=== PATIENT | female | born 1955 | race Caucasian/White ===

== ENCOUNTER 2018-03-04 10:16 | Outpatient (CLI) | payer MEDICAID, SELFPAY ==
[2018-03-04 13:09] LABS: Glucose 90 mg/dL (70-100); Potassium 4.2 mmol/L (3.5-5.1)
== END 2018-03-04 10:36 ==
PROVIDERS: PCP Family Medicine; Visit Provider Family Medicine
DX: E74.39 Other disorders of intestinal carbohydrate absorption (principal)
CPT/HCPCS: 36415; 82947; 84132

== ENCOUNTER 2019-03-13 07:00 | Outpatient (CLI) | payer OTHER, SELFPAY ==
[2019-03-13 13:31] LABS: Calculated LDL 138 mg/dL; Cholesterol 213 mg/dL (50-200); HDL Cholesterol 51 mg/dL (40-60); Triglyceride 124 mg/dL (30-150)
== END 2019-03-13 07:20 ==
PROVIDERS: PCP Family Medicine; Visit Provider Family Medicine
DX: Z00.00 Encounter for general adult medical examination without abnormal findings (principal); Z13.220 Encounter for screening for lipoid disorders
CPT/HCPCS: 36415; 80061; 84132

== ENCOUNTER → 2021-08-11 01:51 | Outpatient (CLI) | payer MEDICARE, SELFPAY ==
--- NOTE | 2021-08-11 12:19 | DI.RAD_ITS ---
Exam(s) XR CHEST 2V PA LATERAL EXAM: XR CHEST 2V PA LATERAL CLINICAL HISTORY: EXERTIONAL SOB R06.09, 30+ PACK PER YEAR TOBACCO USE. TECHNIQUE: 2D digital imaging was performed. COMPARISON: CR CHEST 2 VIEWS PA,LAT from 05/26/2017 FINDINGS: Heart size is normal. The mediastinum is not widened. Lungs are clear. No infiltrates nor pleural effusions. IMPRESSION: No acute pulmonary findings. DATA REPOSITORY: RADIATION DOSE DELIVERED:
== END ==
PROVIDERS: Visit Provider Nurse Practitioner Family
DX: R06.09 Other forms of dyspnea (principal)
CPT/HCPCS: 71046

== ENCOUNTER 2021-08-16 16:36 | Outpatient (REF) | payer MEDICARE, SELFPAY ==
[2021-08-16 15:13] LABS: HCT 42.7 % (36.0-46.0); HGB 13.7 g/dL (11.2-15.7); MCH 30.9 pg (27.0-33.0); MCHC 32.1 % (32.0-36.0); MCV 96.4 fL (80-95); MPV 10.5 fL (8.0-11.0); Platelet Count 229 10^3/uL (130-400); RBC 4.43 10^6/uL (3.93-5.22); RDW 12.2 % (11.7-14.6); WBC 4.05 10^3/uL (4.4-10.8)
[2021-08-16 17:14] LABS: Anion Gap 6.8 mmol/L (3-11); BUN 11 mg/dL (7-18); CO2 29.2 mmol/L (21.0-32.0); CREATININE 0.7 mg/dL (0.55-1.02); Calcium 9.1 mg/dL (8.5-10.1); Calculated LDL 142 mg/dL (<100); Chloride 106 mmol/L (98-107); Cholesterol 218 mg/dL (<200); Glucose 83 mg/dL (74-106); HDL Cholesterol 57 mg/dL (40-60); Potassium 4.2 mmol/L (3.5-5.1); Sodium 142 mmol/L (136-145); Triglyceride 99 mg/dL (<150)
== END 2021-08-16 16:37 | disposition home or self-care (01) ==
LOC: NCHCN 16:36
PROVIDERS: Visit Provider Nurse Practitioner Family
DX: R06.09 Other forms of dyspnea (principal); E87.6 Hypokalemia
CPT/HCPCS: 80048; 80061; 85027

== ENCOUNTER 2022-01-18 04:12 | Outpatient (CLI) | payer MEDICARE, SELFPAY ==
[2022-01-18] MEDS: Inhaler, Assist Device 1 EACH MC (16:55)
[2022-01-18] MEDS: Albuterol HFA 18 GM 200 PUFF INH IH (16:55)
--- NOTE | 2022-01-19 15:30 | W.PFT ---
Date of service: 01/18/22 Time of Service: 15:03 Pulmonary Function Test Result Requesting Provider Donna Holloway Indications: Dyspnea on Exertion Interpretation Spirometry: There is no airflow limitation. There is no significant bronchodilator response. Lung Volumes: Normal lung volumes. Diffusion Capacity: Normal diffusion. Airway Pressure: Normal airways resistance Impression Normal pulmonary function testing Clinical Correlation therefore is recommended.
== END 2022-01-18 04:13 | disposition home or self-care (01) ==
LOC: RT 04:12
PROVIDERS: Visit Provider Nurse Practitioner Family
DX: R06.09 Other forms of dyspnea (principal); Z87.891 Personal history of nicotine dependence
CPT/HCPCS: 94060; 94726; 94729

== ENCOUNTER 2022-04-24 09:22 | Emergency (ER) | payer MEDICARE, SELFPAY ==
[2022-04-24 09:36] VITALS: BP 136/72; PULSE 69; RESP 18; TEMP 36.8; O2SAT 98
--- NOTE | 2022-04-24 09:45 | DI.CT_ITS ---
Exam(s) CT RENAL COLIC WO EXAM: CT RENAL COLIC WO CLINICAL HISTORY: R flank pain. TECHNIQUE: Imaging Protocol: Axial computed tomography images with coronal and sagittal reformatted images were created and reviewed. COMPARISON: CR CHEST 2 VIEWS PA,LAT from 05/26/2017 FINDINGS: ABDOMEN: Lung Bases: Normal where visualized. Liver: Normal density. No measurable mass. Gallbladder and biliary tract: Status post cholecystectomy. No biliary ductal dilatation. Pancreas: Normal density, no abnormal calcifications or inflammatory process. Spleen: Normal. Kidneys: Normal size, contour and axis.There is a 7 mm stone at the right proximal ureter causing mod erate hydronephrosis. No masses seen. Adrenal glands: No mass is seen. Lymph nodes: Within normal limits. Abdominal Aorta: Abdominal portion non-dilated. Mild atherosclerosis. PELVIS: Bladder:Symmetric distention, no gross wall thickening. Bowel: No obstruction or bowel wall thickening. Appendix is unremarkable. Peritoneal cavity: No ascites, collection or mesenteric inflammatory response. No free air. Reproductive organs: Unremarkable as visualized. Bones: Within normal limits. Soft Tissues: Within normal limits. IMPRESSION: 1. 7 mm proximal right ureteral stone causing moderate hydronephrosis. 2. Findings were discussed with the emergency department at 11:10 a.m. on 04/24/2022. RADIATION DOSE DELIVERED: Total DLP DATA REPOSITORY: All CT scans at this facility are submitted to the National Radiology Data Registry (NRDR) Dose Index Registry (DIR) with the [employer] (ACR). RADIATION OPTIMIZATION: All CT scans at this facility use at least one of these dose optimization te chniques: automated exposure control; mA and/or kV adjustment per patient size (includes targeted exa ms where dose is matched to clinical indication); or iterative reconstruction.
[2022-04-24 09:47] LABS: Bilirubin Negative (Negative); Blood Large (Negative); Clarity Clear (Clear); Glucose Negative (Negative); Ketones Negative (Negative); Leukocyte Esterase Negative (Negative); Nitrite Negative (Negative); Specific Gravity >= 1.030 (1.005-1.025); Urobilinogen 0.2 EU/dL (Up TO 0.2)
--- NOTE | 2022-04-24 09:54 | W.ED.GENAD ---
Discharge Plan Disposition Patient Disposition: Home Condition: Improving Discharge Details Clinical Impression: Calculus of proximal right ureter Primary Care Provider: MADHU ANDERS ED Provider: Tim Wade Home Meds and New Rx's Prescriptions: New tamsulosin [Flomax] 0.4 mg capsule 0.4 mg PO DAILY 5 Days Qty: 5 0RF oxycodone 5 mg capsule 5 mg PO BID PRN (Reason: pain) Qty: 7 0RF Continued scopolamine base [Transderm-Scop] 1 mg over 3 days patch 3 day 1 patch Transdermal as directed PRN (Reason: motion sickness) Rx Instructions: apply one patch behind ear 4 hr before trip and q 3 days during trip, for flying. fexofenadine 180 mg tablet 180 mg PO DAILY cholecalciferol (vitamin D3) 25 mcg (1,000 unit) capsule 1,000 unit PO DAILY acetaminophen 325 MG tablet 325 mg PO PRN Qty: 2 ibuprofen 200 MG capsule 200 mg PO PRN Qty: 2 vitamin B complex [B-Complex] 1 EACH tablet 1 ea PO DAILY aspirin 325 MG tablet 650 mg PO BID-TID PRN fluticasone propionate 16 GM spray,suspension 2 spray NS DAILY Label Comments: 06/05/17 on hold. si potassium gluconate 595 mg (99 mg) tablet 99 mg PO DAILY Qty: 120 albuterol sulfate [ProAir HFA] 90 mcg/actuation HFA aerosol inhaler See Rx Instructions inhalation Q6H PRN Rx Instructions: 1-2 puffs inhaled every 6 hours PRN; calcium carbonate 500 mg capsule 500 mg PO DIRECTED Discharge Instructions Instructions: Kidney Stones (ED), How to Strain Your Urine (ED) Additional Instructions: I discussed your case with Dr. Reyna. His office will call to arrange follow-up for you likely to include an operative procedure. The office number is [phone]. Take the Flomax once daily until you see Dr. Reyna for follow-up. This may cause some mild lightheadedness when rising quickly to a standing position. Tylenol and/or ibuprofen as needed for discomfort. May use the provided oxycodone if needed for severe or breakthrough pain. Return to the ER for any acute concern. Medical Decision Making 66-year-old female presents from home with complaint of hours of right-sided flank pain. She states that the colicky pain that reminds her of when she had gallstones. She has had a cholecystectomy. She did not note a fever. Vomited after taking Tylenol. She has otherwise recently been well. Vital signs are reassuring during. Exam reveals right flank tenderness to percussion. Differential diagnosis includes ureteral colic, UTI, pyelonephritis. Patient had IV access established, screening labs and urinalysis obtained, given fluids, antiemetic and analgesic. CT images reveal 7 mm right proximal stone with moderate hydronephrosis. Patient with improved analgesia. Case discussed with Dr. Reyna who will arrange short-term follow-up for the patient. She is stable and appropriate for trial of outpatient management although Sign Out No HPI General Mode of arrival: ambulatory. Date/Time Provider Initiated Documentation: 04/24/22 09:25. Limitations to Documentation: no limitations. Information obtained by: patient. History of Present Illness 66 year old F presents to the emergency department with the chief complaint of Right flank pain 4 hours time, described as moderate, Quality is described as dull, and is localized to the back and right. Patient abdomen. Patient started experiencing this hour(s) and it has been intermittent. No relieving factors improve symptom(s), Patient notes nausea/vomiting; denies fever/chills. Patient did receive the following treatments prior to arrival, none Related Data Home Medications Medication Instructions Recorded Confirmed acetaminophen 325 mg tablet 325 mg PO PRN ##2 10/28/12 03/30/20 ibuprofen 200 mg capsule 200 mg PO PRN ##2 10/28/12 03/30/20 vitamin B complex (B-Complex 1 ea PO DAILY 12/27/15 03/30/20 tablet) aspirin 325 mg tablet 650 mg PO BID-TID PRN 06/05/17 03/30/20 fluticasone propionate 50 2 spray NS DAILY 06/05/17 03/30/20 mcg/actuation nasal spray,suspension fexofenadine 180 mg tablet 180 mg PO DAILY 03/13/19 03/30/20 cholecalciferol (vitamin D3) 25 1,000 unit PO DAILY 08/19/19 03/30/20 mcg (1,000 unit) capsule potassium gluconate 595 mg (99 mg) 99 mg PO DAILY #120 tab-caps 03/30/20 03/30/20 tablet scopolamine base 1 mg over 3 days 1 patch transdermal as directed 10/12/20 transdermal patch (Transderm-Scop) PRN motion sickness albuterol sulfate 90 mcg/actuation See Rx Instructions inhalation Q6H 04/16/22 aerosol inhaler (ProAir HFA) PRN calcium carbonate 500 mg capsule 500 mg PO DIRECTED 04/16/22 oxycodone 5 mg capsule 5 mg PO BID PRN pain #7 caps 04/24/22 tamsulosin 0.4 mg capsule (Flomax) 0.4 mg PO DAILY 5 days #5 caps 04/24/22 Previous Rx's Medication Instructions Recorded oxycodone 5 mg capsule 5 mg PO BID PRN pain #7 caps 04/24/22 tamsulosin 0.4 mg capsule (Flomax) 0.4 mg PO DAILY 5 days #5 caps 04/24/22 Allergies Allergy/AdvReac Type Severity Reaction Status Date / Time No Known Drug Allergies Allergy Verified 10/12/20 10:45 Environmental Allergies Allergy Intermediate Runny Uncoded 10/12/20 10:45 nose, sneezing, watery itchy eyes General Stated Complaint: FlankPain YANN: 3 Review of Systems Narrative: 6 systems reviewed and otherwise negative. PFSH All Active Problems (Updated 04/24/22 @ 11:39 by Tim Wade MD) Calculus of proximal right ureter (Acute) Arthritis (Acute) Eye problem (Acute) Ischial bursitis (Acute) Chronic hypokalemia (Acute) Exertional shortness of breath (Acute) Blood pressure check (Acute) Bilateral buttock pain (Acute) Abnormal weight loss (Acute 06/02/12) Cholecystitis (Acute 02/25/13) Chronic cholecystitis (Acute) Clostridium difficile infection (Acute 02/01/08) H/O dysmenorrhea (Acute) History of eye surgery (Acute) History of tobacco use (Acute) Hyperlipidemia (Acute) Status post breast biopsy (Acute) Status post cholecystectomy (Acute) Tinnitus of both ears (Acute 01/20/15) Sensorineural hearing loss, bilateral (Acute 01/20/15) Osteoarthritis, hand (Acute) DIP AND CMC JOINTS Hearing loss (Acute) Essential hypertension (Acute 02/25/13) Depressive disorder (Acute) seasonal Allergic rhinitis (Acute) Abnormal mammogram, unspecified (Acute) -left mammo and U/S =+ cysts; 12/02-Bx of [facility] fibroadenoma w/ adenosis (left); 09/03-U/S Cat 4, BX=neg. Medical History Essential hypertension Tobacco use Surgical History Biopsy of breast (~2002) [facility]-neg. Cholecystectomy (02/11/13) STRABISMUS X 2 Family History Mother , age 66 Diabetes Essential hypertension Father , age 66 Prostate cancer Depression Sister Heart disease Breast cancer x 2 Maternal Grandfather , age 80? Lung cancer Paternal Grandfather , age 80? No problems noted. Maternal Grandmother , age 666 Essential hypertension Stroke Paternal Grandmother , age 94 No problems noted. Son Depression Daughter , age 23 Depression Substance abuse Social History Smoking/Tobacco Use Status: Former Tobacco Use tobacco type: cigarettes Quit Date: 06/03/90 Tobacco: How many years used: 22 Second Hand Exposure: Yes Smoking risk assessment performed?: Yes Alcohol Intake: never Drug use: Never Substance use type: does not use Caregiver/Support person: No Household members: spouse and friend(s) Housing: house Communication Needs: Hard of Hearing and Corrective Lenses Do you need help understanding health information?: Rarely current occupation: SELF EMPLOYED Pets and animals: Yes Pets and animals: cat(s) Sexually active: No Do you think of yourself as: straight/heterosexual Current gender identity: female What is your relationship status?: How often do you talk on the phone with friends or family?: three or more times per week How often do you get together with friends or relatives?: once per week How often do you attend islam or roman catholic services?: 4 or more times per year Do you belong to any clubs or organized social groups?: no Panel score (0-1 are the most socially isolated patients): 3 What type of physical activity do you participate in: walking Duration: 30-45 minutes/day Frequency: daily Radha/Anabaptism: Buddhism Special radha needs: No Seatbelt use: always Drive intox or ride w/intox truck driver rubbish collector: No Do you feel safe at home: Yes Do you feel safe in your relationship?: Yes Victim of physical abuse: No Victim of emotional abuse: No Victim of sexual abuse: No Would you like helpful sources: No Exam Narrative Exam Narrative: GEN: awake, alert, oriented 3. Pleasant, well groomed, interactive. HEAD: Normocephalic, atraumatic ENT: Mucous membranes moist, oropharynx unremarkable, External ear exam unremarkable EYES: PERRL, EOMI NECK: Full ROM, no HOLA, no menigismus CHEST/RESP: Nontender, clear to auscultation bilateral, no wheeze/rhonchi/rales CARDIOVASCULAR: RRR, no murmur, rub kwaku. 2+ Rad pulse bilateral ABDOMEN: Soft, minimal right upper quadrant tender, right flank tender to palpation percussion, no mass. +Bowel sounds EXT: Full ROM, no edema, no rash Neuro: Grossly normal neurologic exam, conversant, interactive. Psych: Speech fluent, thoughts congruent, affect normal Course Vital Signs Vital signs: Vital Signs Temperature 36.8 C 04/24/22 09:36 Pulse 69 04/24/22 09:36 Respiratory Rate 18 04/24/22 09:36 Blood Pressure 136/72 04/24/22 09:36 Pulse Oximetry 98 04/24/22 09:36 Temperature 36.8 C 04/24/22 09:36 Temperature Source Skin 04/24/22 09:36 Pulse 69 04/24/22 09:36 Respiratory Rate 18 04/24/22 09:36 Blood Pressure 136/72 04/24/22 09:36 Blood Pressure Position Sitting 04/24/22 09:36 Pulse Oximetry 98 04/24/22 09:36 Oxygen Delivery Method Room Air 04/24/22 09:36 Oxygen Flow Rate 0 04/24/22 09:36 Pain Level 7 04/24/22 09:36 Lab/Test Results Lab/Test Results: Laboratory Tests Range/Units 04/24/22 09:35 Urine Color (Yellow) Yellow Urine Clarity (Clear) Clear Urine pH (5-8) 7.0 Ur Specific [place] (1.005-1.025) >= 1.030 H Urine Protein (Negative) mg/dL 30 H Urine Ketones (Negative) mg/dL Negative Urine Blood (Negative) Large H Urine Nitrite (Negative) Negative Urine Bilirubin (Negative) Negative Urine Urobilinogen (Up TO 0.2) EU/dL 0.2 Ur Leukocyte Esterase (Negative) Negative Urine Glucose (Negative) mg/dL Negative
[2022-04-24 09:59] LABS: Bacteria Negative HPF (Negative); C & S Indicated? No/Sq. Contamination; Casts Negative LPF (Negative); Crystals Negative HPF (Negative); Epithelial Cells Moderate HPF (Negative); Mucus Negative (Negative); RBC >50 HPF (0-2)
[2022-04-24 10:09] LABS: Abs Immature Grans 0.02 10^3/uL (0.0-0.06); Absolute Basophil Count 0.05 10^3/uL (0.0-0.2); Absolute Eosinophil Count 0.01 10^3/uL (0.0-0.7); Absolute Lymphocyte Count 0.81 10^3/uL (1.2-3.4); Absolute Monocyte Count 0.31 10^3/uL (0.1-0.8); Absolute Neutrophil Count 6.77 10^3/uL (1.2-6.7); Basophils % 0.6; Eosinophils % 0.1; HCT 48.8 % (36.0-46.0); HGB 16.2 g/dL (11.2-15.7); Immature Grans % 0.3; Lymphocytes % 10.2; MCH 31.2 pg (27.0-33.0); MCHC 33.2 % (32.0-36.0); MCV 94 fL (80-95); MPV 10.1 fL (8.0-11.0); Monocytes % 3.9; Neutrophils % 84.9; Platelet Count 241 10^3/uL (130-400); RBC 5.19 10^6/uL (3.93-5.22); RDW 12.1 % (11.7-14.6); RDW-SD 42.2 fL; WBC 7.97 10^3/uL (4.4-10.8)
[2022-04-24] MEDS: Ondansetron 4 MG/2 ML VIAL IVP (10:28)
[2022-04-24] MEDS: ACETAMINOPHEN 1,000 MG/100 ML BTL 400 MG IVPB (10:28)
[2022-04-24] MEDS: Normal Saline 1,000 ML 1000 ML IV (10:28)
[2022-04-24 10:31] LABS: Anion Gap 7.8 mmol/L (3-11); BUN 13 mg/dL (7-18); CO2 29.2 mmol/L (21.0-32.0); CREATININE 0.8 mg/dL (0.55-1.02); Calcium 9.7 mg/dL (8.5-10.1); Chloride 102 mmol/L (98-107); Estimated GFR 80.71 (mL/min/1.73m2); Glucose 116 mg/dL (74-106); Potassium 3.6 mmol/L (3.5-5.1); Sodium 139 mmol/L (136-145)
== END 2022-04-24 12:11 | disposition home or self-care (01) ==
PROVIDERS: Emergency Provider Emergency Medicine; PCP Nurse Practitioner Family
DX: N13.2 Hydronephrosis with renal and ureteral calculous obstruction (principal); R11.10 Vomiting, unspecified; I10 Essential (primary) hypertension; Z90.49 Acquired absence of other specified parts of digestive tract; Z79.82 Long term (current) use of aspirin; Z87.891 Personal history of nicotine dependence
CPT/HCPCS: 80048; 96361; 96365; 96375; 99284; 74176; 81003; 81015; 85025; J0131; J2405

== ENCOUNTER 2022-04-30 10:03 | Day surgery (SDC) | payer MEDICARE, SELFPAY ==
[2022-04-30] VITALS (9 sets, daily range): BP systolic 119–148; BP diastolic 65–92; PULSE 63–73; RESP 14–18; TEMP 36.2–36.7; O2SAT 90–99; BMI 22.8
--- NOTE | 2022-04-30 10:53 | W.ANESPRE ---
General Info Date of Service Date Performed: 04/30/22 Height: 5 ft 3 in Weight: 58.5 kg Body Mass Index (BMI): 22.8 Surgical Procedure: Operation Date: 04/30/22 11:10 Proposed Procedure Side Surgeon p Cystoscopy/Laser/Retrograde/Ureteroscopy/Possible Stent Right Saroj Reyna MD Meds Allergies and Home Medications Allergies Allergy/AdvReac Type Severity Reaction Status Date / Time No Known Drug Allergies Allergy Verified 04/30/22 07:57 Environmental Allergies Allergy Intermediate Runny Uncoded 04/30/22 10:35 nose, sneezing, watery itchy eyes Home Medication Medication Instructions Recorded acetaminophen 325 mg tablet 325 mg PO PRN ##2 10/28/12 ibuprofen 200 mg capsule 200 mg PO PRN ##2 10/28/12 vitamin B complex (B-Complex 1 ea PO DAILY 12/27/15 tablet) fluticasone propionate 50 2 spray NS DAILY 06/05/17 mcg/actuation nasal spray,suspension fexofenadine 180 mg tablet 180 mg PO DAILY 03/13/19 cholecalciferol (vitamin D3) 25 1,000 unit PO DAILY 08/19/19 mcg (1,000 unit) capsule potassium gluconate 595 mg (99 mg) 99 mg PO DAILY #120 tab-caps 03/30/20 tablet albuterol sulfate 90 mcg/actuation See Rx Instructions inhalation Q6H 04/16/22 aerosol inhaler (ProAir HFA) PRN oxycodone 5 mg capsule 5 mg PO BID PRN pain #7 caps 04/24/22 celecoxib 200 mg capsule (Celebrex) 200 mg PO BID 04/30/22 fexofenadine 180 mg tablet 180 mg PO DAILY 04/30/22 tamsulosin 0.4 mg capsule (Flomax) 0.4 mg PO DAILY 04/30/22 tumeric 100 mg-augustina 150 mg-olive cap PO 04/30/22 50 mg-oreg 150 mg-caprylate capsule Current Visit Medications: Current Medications Generic Name Dose Route Start Last Admin Trade Name Freq PRN Reason Stop Dose Admin Ringer's Solution 1,000 mls @ 80 mls/hr 04/30/22 06:00 IV 04/30/22 23:59 INFUSION JEFRY Cefazolin Sodium/Dextrose 2 gm in 50 mls @ 100 mls/hr 04/30/22 06:00 Ancef Duplex IVPB 04/30/22 23:59 PREOP JEFRY IV Miscellaneous Supplies 1 each 04/30/22 06:00 Iv Access IV 04/30/22 23:59 DIRECTED JEFRY Sodium Chloride 0 ml 04/30/22 06:00 Normal Saline Flush 10 Ml Syr IV 04/30/22 23:59 PRN PRN Sodium Chloride 0 ml 04/30/22 06:00 Normal Saline 10 Ml Vial IJ 04/30/22 23:59 DIRECTED PRN Sterile Water 0 ml 04/30/22 06:00 Water,Injection,Sterile 10 Ml Vial IJ 04/30/22 23:59 DIRECTED PRN PFSH Active Problems Active Problems: Problem Status Onset Code Calculus of proximal right ureter N20.1 Arthritis M19.90 Eye problem H57.9 Ischial bursitis M70.70 Chronic hypokalemia E87.6 Exertional shortness of breath R06.02 Blood pressure check Z01.30 Bilateral buttock pain M79.18 Abnormal weight loss 06/02/12 R63.4 Cholecystitis 02/25/13 K81.9 Chronic cholecystitis K81.1 Clostridium difficile infection 02/01/08 A49.8 H/O dysmenorrhea Z87.42 History of eye surgery Z98.890 History of tobacco use Z87.891 Hyperlipidemia E78.5 Status post breast biopsy Z98.890 Status post cholecystectomy Z90.49 Tinnitus of both ears 01/20/15 H93.13 Sensorineural hearing loss, bilateral 01/20/15 H90.3 Osteoarthritis, hand Hearing loss H91.90 Essential hypertension 02/25/13 I10 Depressive disorder F32.9 Allergic rhinitis J30.9 Abnormal mammogram, unspecified R92.8 Medical History Medical History Essential hypertension Tobacco use Surgical History Surgical History Biopsy of breast (~2002) [facility]-neg. Cholecystectomy (02/11/13) STRABISMUS X 2 Tobacco Smoking/Tobacco Use Status: Former Tobacco Use Passive smoking exposure: Yes Second hand exposure: Yes Alcohol Alcohol Intake: never Substance Use Substance use: Never Substance use type: does not use Vital Signs and Lab Results Vital Signs Most Recent Vital Signs in EMR: Most Recent Vital Signs Temp Pulse Resp BP Pulse Ox 36.7 C 73 16 138/66 99 04/30/22 10:36 04/30/22 10:36 04/30/22 10:36 04/30/22 10:36 04/30/22 10:36 Lab Results Blood Type / Crossmatch: No Data to Display Complete Blood Count: White Blood Count 7.97 10^3/uL (4.4-10.8) 04/24/22 10:04 Red Blood Count 5.19 10^6/uL (3.93-5.22) 04/24/22 10:04 Hemoglobin 16.2 g/dL (11.2-15.7) H 04/24/22 10:04 Hematocrit 48.8 % (36.0-46.0) H 04/24/22 10:04 Platelet Count 241 10^3/uL (130-400) 04/24/22 10:04 Complete Metabolic Panel: Sodium 139 mmol/L (136-145) 04/24/22 10:04 Potassium 3.6 mmol/L (3.5-5.1) 04/24/22 10:04 Chloride 102 mmol/L (98-107) 04/24/22 10:04 Carbon Dioxide 29.2 mmol/L (21.0-32.0) 04/24/22 10:04 BUN 13 mg/dL (7-18) 04/24/22 10:04 Creatinine 0.8 mg/dL (0.55-1.02) 04/24/22 10:04 Est GFR (CKD-EPI 2020) 80.71 (mL/min/1.73m2) 04/24/22 10:04 Calcium 9.7 mg/dL (8.5-10.1) 04/24/22 10:04 Glucose 116 mg/dL (74-106) H 04/24/22 10:04 Liver Function Panel: No Data to Display Coagulation Panel: No Data to Display Cardiac Panel: No Data to Display Arterial Blood Gas: No Data to Display Venous Blood Gas: No Data to Display Pancreas Panel: No Data to Display Thyroid Panel: No Data to Display Infectious Disease: No Data to Display Blood Cultures: No Data to Display Toxicology Panel: No Data to Display Anesthesia Assessment and Plan Anesthesia History Personal History: PONV Family History: No Family History of Anesthesia Complications Exercise Tolerance Exercise Tolerance: Metabolic Equivalents>4 Pertinent Negatives Pertinent Negatives: No Symptoms of GERD, No Major Cardiovascular Symptoms or Complaints, No Major Pulmonary Symptoms or Complaints (Recent FITCH but has improved. ) and No History of CVA/TIA Cardiac & Pulmonary Exam Cardiac Exam: Normal S1/S2 Heart Sounds Pulmonary Exam: Clear Bilateral Breath Sounds Implantable Cardiac Device Does patient have a Pacemaker or an ICD?: No Airway Exam Known Difficult Airway: No Mallampati Class: 2 Mouth Opening: Normal (> 3cm) Thyromental Distance: Greater than 3 cm Neck Range of Motion: Full ROM Neck Circumference: Normal Teeth Condition: Normal Dentition ASA Classification ASA Score: ASA 2 Emergency Case?: No NPO Status NPO Status: NPO Clears >2 hours, Solids >8 hours Anesthesia Plan Resuscitation Status: Full Code Anesthesia Technique: General Anesthesia Airway Planned: LMA Monitors Used: Standard Monitors
[2022-04-30] MEDS: Lactated Ringers 1,000 ML 80 ML IV (10:55)
--- NOTE | 2022-04-30 11:15 | DI.RAD_ITS ---
Exam(s) XR RETROGRADE IN OR EXAM: XR RETROGRADE IN OR CLINICAL HISTORY: (1) Calculus of proximal right ureter. TECHNIQUE: Fluoroscopy was provided for the referring physician for guidance with performing retrogr marquise procedure. COMPARISON: No exams were available for comparison FINDINGS: Please see procedure note for details. Fluoro time: 2 minutes 30 seconds RADIATION DOSE DELIVERED: kobi Escalante=17.8 mGy
[2022-04-30] MEDS: ceFAZolin 2 GM/50 ML BAG IVPB (12:01)
[2022-04-30] MEDS: Omnipaque 300 MG/ML 50 ML BTL (12:29)
[2022-04-30] MEDS: Lidocaine 2% Jelly 6 ML SYR (12:30)
--- NOTE | 2022-04-30 12:58 | W.PM.DSUDISC ---
Date of service: 04/30/22 Time of Service: 12:59 Discharge Plan Disposition Patient Disposition: HOME Condition: Good Discharge Details Reason For Visit: R) URETERAL STONE Attending Provider: Saroj Reyna Primary Care Provider: MADHU ANDERS Home Meds and New Rx's Prescriptions: No Action fexofenadine 180 mg tablet 180 mg PO DAILY cholecalciferol (vitamin D3) 25 mcg (1,000 unit) capsule 1,000 unit PO DAILY tamsulosin [Flomax] 0.4 mg capsule 0.4 mg PO DAILY celecoxib [Celebrex] 200 mg capsule 200 mg PO BID [id number]-mfepk-oreg-capryl 100 mg-150 mg- 50 mg-150 mg capsule PO fexofenadine 180 mg tablet 180 mg PO DAILY acetaminophen 325 MG tablet 325 mg PO PRN Qty: 2 ibuprofen 200 MG capsule 200 mg PO PRN Qty: 2 vitamin B complex [B-Complex] 1 EACH tablet 1 ea PO DAILY fluticasone propionate 16 GM spray,suspension 2 spray NS DAILY Label Comments: 06/05/17 on hold. si potassium gluconate 595 mg (99 mg) tablet 99 mg PO DAILY Qty: 120 albuterol sulfate [ProAir HFA] 90 mcg/actuation HFA aerosol inhaler See Rx Instructions inhalation Q6H PRN Rx Instructions: 1-2 puffs inhaled every 6 hours PRN; oxycodone 5 mg capsule 5 mg PO BID PRN (Reason: pain) Qty: 7 0RF Discharge Instructions Additional Instructions: no need to strain urine my office will contact patient to arrange followup cystoscopy, stent removal, repeat ureteroscopy to make sure all stone fragments are gone Activity:: Activity as Tolerated Shower/Bathe:: 24 hours Equipment/Supplies:: No Equipment Needed Diet:: As Tolerated DS: Diagnosis Discharge Diagnosis (1) Calculus of proximal right ureter: Status: Acute
[2022-04-30] MEDS: Phenazopyridine 200 MG TAB PO (14:17)
--- NOTE | 2022-04-30 14:52 | W.PM.OP ---
Date of service: 04/30/22 Time of Service: 13:00 Operative Note Operative Note DATE OF PROCEDURE: 04/30/22 PRE-OP DIAGNOSIS: Right ureteral stone POST-OP DIAGNOSIS: same PROCEDURE: Cystoscopy, right retrograde pyelogram, right flexible ureteroscopy, holmium laser lithotripsy of right ureteral stone, extraction of stone fragments, insert right ureteral stent SURGEON: Saroj Reyna ANESTHESIA TYPE: General LMA/ETT Refer to Anesthesia Record ESTIMATED BLOOD LOSS: 10 PATHOLOGY: other (Stone fragments for chemical analysis) COMPLICATIONS: None Patient was transported to: PACU Patient's condition: stable Implants: 6 [place] by 22 to 30 cm right ureteral stent Indications: This is a 66-year-old woman who presented to the emergency department about a week ago with right back pain. She was found to have a large proximal right ureteral stone. Her symptoms have persisted despite conservative medical therapy. She presents now for stone manipulation Findings: Right proximal ureteral stone Procedure Description: The patient was given dose of preoperative IV antibiotics. She is brought to the operating room on 04/30/2022. After successful induction of general anesthesia, she was placed in the dorsal lithotomy position. Her genitalia was prepped and draped. 2% Xylocaine jelly was instilled into the urethra to act as a local anesthetic. A 22 [place]ian rigid cystoscope was passed through the urethra into the bladder. The bladder was inspected with a 30 degree lens. Both ureteral orifices appeared normal with no blood coming from either side. The right orifice was cannulated with a 6 [place]ian access catheter. Retrograde pyelogram was obtained by injecting Omnipaque through the access catheter under fluoroscopic guidance. A filling defect was outlined in the right proximal ureter. We then passed a Glidewire through the lumen of the access catheter and removed the catheter. The dual-lumen catheter was advanced and a second wire was positioned. We chose one of the wires as a working wire and the other as a safety wire. I initially attempted to pass a ureteral access sheath over the working wire, but the sheath did not advance easily past the level of the pelvic brim. I then passed the flexible ureteroscope over the working wire and advanced the scope up until a large stone was seen. The stone was then treated with a 365 ?m holmium laser fiber. We initially began with a power setting of 800 and a rate of 8. The stone fragmented quite well and most of the fragments went back up into the kidney. I then advanced the scope up to the kidney and extracted multiple stone fragments using a 0 tip stone basket. The largest fragment was brought back to the proximal ureter and released. The stone was then retreated using dusting settings with a power of 200 and a rate of 8. Once the stone was smaller than the lumen of the ureter, the stone was grasped in the 0 tip stone basket and removed. I was uncertain if all stone fragments that had moved back up into the kidney had been safely extracted. I placed a 6 [place]ian variable length stent over the safety wire. We positioned the stent with the proximal end curled in the renal pelvis and the distal end curled in the bladder. The positioning of the stent was confirmed both fluoroscopically and cystoscopically. We will make an arrangement to bring her back to the operating room in a week or 2. We we should be able to extract the stent and repeat ureteroscopy to ensure all stone fragments had been removed. She tolerated this procedure well with no complications.
--- NOTE | 2022-04-30 15:07 | W.ANESPOSTOP ---
Postoperative Evaluation Date, Time and Location Date Performed: 04/30/22 Time Performed: 15:07 Patient Location: Day Surgery Unit Vital Signs Most Recent Imported Vital Signs: Most Recent Vital Signs Temp Pulse Resp BP Pulse Ox 36.5 C 66 16 139/77 97 04/30/22 14:03 04/30/22 14:03 04/30/22 14:03 04/30/22 14:03 04/30/22 14:03 Pain Score Most Recent Pain Score: Most Recent Pain Score Pain Level 0 04/30/22 14:03 Assessment Mental Status: Awake (Alert & Oriented to Patient Baseline) Airway and Respiratory Function: Patent airway with normal (patient baseline) respiratory exam Cardiovascular Function: Hemodynamically Stable Hydration Status: Adequately Hydrated Nausea & Vomiting: No Nausea or Vomiting Pain: Pt. Denies Any Pain Peripheral Nerve Block: Patient did not receive a nerve block Postoperative Comments:: Seen in DSU early today.
[2022-05-03 23:26] LABS: Source: Right Ureter
== END 2022-04-30 14:50 | disposition home or self-care (01) ==
PROVIDERS: PCP Nurse Practitioner Family; Visit Provider Urology
PROC: 0TC68ZZ Extirpation of Matter from Right Ureter, Via Natural or Artificial Opening Endoscopic (ICD-10-PCS; CPT 52356; principal; 2022-04-30 11:00)
DX: N20.1 Calculus of ureter (principal); I10 Essential (primary) hypertension; E78.5 Hyperlipidemia, unspecified; E87.6 Hypokalemia
CPT/HCPCS: 52356; 74420; 82365; J0690; J1885; J2405; J2704; Q9967

== ENCOUNTER → 2022-05-14 12:26 | Outpatient (BNVA) | payer MEDICARE, SELFPAY | PROVIDERS: PCP Nurse Practitioner Family; Referring Provider Nurse Practitioner Family; Visit Provider Nurse Practitioner Gerontology | DX: R31.0 Gross hematuria (principal); Z98.890 Other specified postprocedural states; Z87.442 Personal history of urinary calculi; R30.0 Dysuria; R10.9 Unspecified abdominal pain | CPT/HCPCS: 81003; 99214 ==

== ENCOUNTER 2022-05-15 09:22 | Outpatient (REF) | payer MEDICARE, SELFPAY ==
[2022-05-15 09:17] LABS: Bilirubin Negative (Negative); Blood Large (Negative); Clarity Cloudy (Clear); Glucose Negative (Negative); Ketones Negative (Negative); Leukocyte Esterase Moderate (Negative); Nitrite Positive (Negative); Specific Gravity >= 1.030 (1.005-1.025)
[2022-05-15 09:36] LABS: C & S Indicated? C&S Done As Ordered; RBC >50 HPF (0-2)
== END 2022-05-15 09:23 | disposition home or self-care (01) ==
LOC: LBN 09:22
PROVIDERS: PCP Nurse Practitioner Family; Visit Provider Nurse Practitioner Gerontology
DX: R30.0 Dysuria (principal); R31.9 Hematuria, unspecified
CPT/HCPCS: 87077; 81003; 81015; 87086; 87186

== ENCOUNTER 2022-05-16 01:09 | Outpatient (CLI) | payer MEDICARE, SELFPAY ==
--- NOTE | 2022-05-16 06:45 | DI.US_ITS ---
Exam(s) US RENAL EXAM: US RENAL CLINICAL HISTORY: right flank pain s/p ureteroscopy 2 wk ago,r10.9. TECHNIQUE: Del Valle scale, color and spectral Doppler were used. COMPARISON: CT CT RENAL COLIC WO from 04/24/2022 FINDINGS: Renal size in cm: Right: 10.6. Left: 11.1. Echogenicity: Normal. Hydronephrosis: No. Cyst or mass: No. Nephrolithiasis: There is a 5 mm echogenic focus in the inferior right kidney which may represent a n onobstructing stone. Other findings: None. Bladder:The urinary bladder was not well distended at 17 cc. This limits evaluation. Ureteral jets: Right: Not visualized at this examination. Left: Not visualized at this examination. Prevoid vol:17 cc Renal color flow: Symmetric and within normal limits. IMPRESSION: No evidence of hydronephrosis. DATA REPOSITORY:
== END 2022-05-16 01:29 ==
LOC: DI 01:10
PROVIDERS: PCP Nurse Practitioner Family; Visit Provider Nurse Practitioner Gerontology
DX: R10.31 Right lower quadrant pain (principal); Z98.890 Other specified postprocedural states; N28.89 Other specified disorders of kidney and ureter
CPT/HCPCS: 76770

== ENCOUNTER 2022-05-25 10:20 | Outpatient (REF) | payer MEDICARE, SELFPAY ==
[2022-05-25 11:21] LABS: Bilirubin Negative (Negative); Blood Large (Negative); Clarity Cloudy (Clear); Glucose Negative (Negative); Ketones Trace mg/dL (Negative); Leukocyte Esterase Moderate (Negative); Nitrite Negative (Negative); Specific Gravity >= 1.030 (1.005-1.025); Urobilinogen 0.2 EU/dL (Up TO 0.2); pH 5.5 (5-8)
[2022-05-25 11:28] LABS: WBC >50 HPF (0-5)
[2022-05-25 11:29] LABS: C & S Indicated? C&S Done As Ordered; RBC >50 HPF (0-2)
== END 2022-05-25 10:21 | disposition home or self-care (01) ==
LOC: LBN 10:20
PROVIDERS: PCP Nurse Practitioner Family; Visit Provider Urology
DX: R31.9 Hematuria, unspecified (principal); R30.0 Dysuria
CPT/HCPCS: 81003; 81015; 87086

== ENCOUNTER 2022-05-31 06:13 | Day surgery (SDC) | payer MEDICARE, SELFPAY ==
[2022-05-31 06:34] VITALS: BP 110/57; PULSE 70; RESP 16; TEMP 36; O2SAT 99
--- NOTE | 2022-05-31 06:45 | W.PM.HP.N ---
Date of service: 05/31/22 Time of Service: 06:46 Assessment and Plan Assessment and plan (1) Kidney stones: Assessment and plan: For cystoscopy, stent removal, retrograde pyelogram with ureteroscopy and removal of stone fragments History of Present Illness History of Present Illness Chief Complaint: Right ureteral stone Narrative: This is a 66 year old woman who initially presented with a proximal right ureteral stone. She underwent flexible ureteroscopy with holmium laser lithotripsy. We extracted multiple stone fragments (70% calcium oxalate dihydrate and 30% calcium phosphate) but are unsure all stone fragments have been cleared. She presents for repeat ureteroscopy and extraction of any residual stone fragments. She has had blood in the urine off and on while her stent is indwelling. She had some right sided flank pain and urinary frequency that was evaluated with a renal US. No hydronephrosis was identified with the stent in place. She was found to have an E Coli Uti that was treated with appropriate antibiotics. Review of Systems Narrative: No fevers or chills Allergic rhinitis, decreased hearing acuity. No diabetes or thyroid SOB with exertion. No cough or hemoptysis No chest pain or palpitations No nausea, vomiting, hepatitis, ulcers, jaundice No seizures, strokes or peripheral neuropathy No bleeding disorders or anemia No gout PFSH All Active Problems Abnormal mammogram, unspecified (Acute) -left mammo and U/S =+ cysts; 12/02-Bx of [facility] fibroadenoma w/ adenosis (left); 09/03-U/S Cat 4, BX=neg. Allergic rhinitis (Acute) Depressive disorder (Acute) seasonal Essential hypertension (Acute 02/25/13) Hearing loss (Acute) Osteoarthritis, hand (Acute) DIP AND CMC JOINTS Sensorineural hearing loss, bilateral (Acute 01/20/15) Tinnitus of both ears (Acute 01/20/15) Status post cholecystectomy (Acute) Status post breast biopsy (Acute) Hyperlipidemia (Acute) History of tobacco use (Acute) History of eye surgery (Acute) H/O dysmenorrhea (Acute) Clostridium difficile infection (Acute 02/01/08) Chronic cholecystitis (Acute) Cholecystitis (Acute 02/25/13) Abnormal weight loss (Acute 06/02/12) Bilateral buttock pain (Acute) Blood pressure check (Acute) Exertional shortness of breath (Acute) Chronic hypokalemia (Acute) Ischial bursitis (Acute) Eye problem (Acute) Arthritis (Acute) Medical History Essential hypertension Kidney stones Tobacco use Surgical History Biopsy of breast (~2002) [facility]-neg. Cholecystectomy (02/11/13) History of cystoscopy STRABISMUS X 2 Family History Mother , age 66 Diabetes Essential hypertension Father , age 66 Prostate cancer Depression Sister Heart disease Breast cancer x 2 Maternal Grandfather , age 80? Lung cancer Paternal Grandfather , age 80? No problems noted. Maternal Grandmother , age 666 Essential hypertension Stroke Paternal Grandmother , age 94 No problems noted. Son Depression Daughter , age 23 Depression Substance abuse Social History Smoking/Tobacco Use Status: Former Tobacco Use tobacco type: cigarettes Quit Date: 06/03/90 Tobacco: How many years used: 22 Second Hand Exposure: Yes Smoking risk assessment performed?: Yes Alcohol Intake: never Drug use: Never Substance use type: does not use Caregiver/Support person: No Household members: spouse and friend(s) Housing: house Communication Needs: Hard of Hearing and Corrective Lenses Do you need help understanding health information?: Rarely current occupation: SELF EMPLOYED Pets and animals: Yes Pets and animals: cat(s) Sexually active: No Do you think of yourself as: straight/heterosexual Current gender identity: female What is your relationship status?: How often do you talk on the phone with friends or family?: three or more times per week How often do you get together with friends or relatives?: once per week How often do you attend evangelical or sabianism services?: 4 or more times per year Do you belong to any clubs or organized social groups?: no Panel score (0-1 are the most socially isolated patients): 3 What type of physical activity do you participate in: walking Duration: 30-45 minutes/day Frequency: daily Radha/Orthodox: Yarsani Special radha needs: No Seatbelt use: always Drive intox or ride w/intox corporate driver: No Do you feel safe at home: Yes Do you feel safe in your relationship?: Yes Victim of physical abuse: No Victim of emotional abuse: No Victim of sexual abuse: No Would you like helpful sources: No Meds Allergies and Home Medications Allergies Allergy/AdvReac Type Severity Reaction Status Date / Time No Known Drug Allergies Allergy Verified 05/31/22 06:30 Environmental Allergies Allergy Intermediate Runny Uncoded 05/31/22 06:30 nose, sneezing, watery itchy eyes Home Medications Medication Instructions Recorded Confirmed Type acetaminophen 325 mg tablet 325 mg PO PRN ##2 10/28/12 05/31/22 History ibuprofen 200 mg capsule 200 mg PO PRN ##2 10/28/12 05/31/22 History vitamin B complex (B-Complex 1 ea PO DAILY 12/27/15 05/31/22 History tablet) fluticasone propionate 50 2 spray NS DAILY 06/05/17 05/31/22 History mcg/actuation nasal spray,suspension cholecalciferol (vitamin D3) 25 1,000 unit PO DAILY 08/19/19 05/31/22 History mcg (1,000 unit) capsule potassium gluconate 595 mg (99 mg) 99 mg PO DAILY #120 tab-caps 03/30/20 05/31/22 History tablet albuterol sulfate 90 mcg/actuation See Rx Instructions inhalation Q6H 04/16/22 05/31/22 History aerosol inhaler (ProAir HFA) PRN oxycodone 5 mg capsule 5 mg PO BID PRN pain #7 caps 04/24/22 05/31/22 Rx celecoxib 200 mg capsule (Celebrex) 200 mg PO BID 04/30/22 05/31/22 History fexofenadine 180 mg tablet 180 mg PO DAILY 04/30/22 05/31/22 History tamsulosin 0.4 mg capsule (Flomax) 0.4 mg PO DAILY 04/30/22 05/31/22 History tumeric 100 mg-augustina 150 mg-olive 1 cap PO DAILY 04/30/22 05/31/22 History 50 mg-oreg 150 mg-caprylate capsule fluconazole 150 mg tablet 150 mg PO Q3D 2 doses #2 tabs 05/04/22 05/31/22 Rx (Diflucan) nitrofurantoin 100 mg PO Q12H #10 caps 05/21/22 05/31/22 Rx monohydrate/macrocrystals 100 mg capsule sulfamethoxazole 800 1 tab PO BID #10 tabs 05/25/22 05/31/22 Rx mg-trimethoprim 160 mg tablet (Bactrim DS) Exam Const General: cooperative Neck Neck: supple Resp Effort & Inspection: normal respiratory effort Auscultation: clear to auscultation bilaterally Cardio Rate: regular rate Rhythm: regular rhythm GI Palpation: soft Neuro General: patient alert, patient awake and patient oriented x3 Results Last Vital Signs Temp 36 C L 05/31/22 06:34 Pulse 70 05/31/22 06:34 Resp 16 05/31/22 06:34 BP 110/57 L 05/31/22 06:34 Pulse Ox 99 05/31/22 06:34
[2022-05-31] MEDS: Lactated Ringers 1,000 ML 80 ML IV (06:55)
--- NOTE | 2022-05-31 07:00 | W.ANESPRE ---
General Info Date of Service Date Performed: 05/31/22 Height: 5 ft 3 in Weight: 58 kg Body Mass Index (BMI): 22.6 Surgical Procedure: Operation Date: 05/31/22 07:40 Proposed Procedure Side Surgeon p Cystoscopy/Retrograde/Ureteroscopy/Stent Removal/Possible Stone Extraction Right Saroj Reyna MD Meds Allergies and Home Medications Allergies Allergy/AdvReac Type Severity Reaction Status Date / Time No Known Drug Allergies Allergy Verified 05/31/22 06:30 Environmental Allergies Allergy Intermediate Runny Uncoded 05/31/22 06:30 nose, sneezing, watery itchy eyes Home Medication Medication Instructions Recorded acetaminophen 325 mg tablet 325 mg PO PRN ##2 10/28/12 ibuprofen 200 mg capsule 200 mg PO PRN ##2 10/28/12 vitamin B complex (B-Complex 1 ea PO DAILY 12/27/15 tablet) fluticasone propionate 50 2 spray NS DAILY 06/05/17 mcg/actuation nasal spray,suspension cholecalciferol (vitamin D3) 25 1,000 unit PO DAILY 08/19/19 mcg (1,000 unit) capsule potassium gluconate 595 mg (99 mg) 99 mg PO DAILY #120 tab-caps 03/30/20 tablet albuterol sulfate 90 mcg/actuation See Rx Instructions inhalation Q6H 04/16/22 aerosol inhaler (ProAir HFA) PRN oxycodone 5 mg capsule 5 mg PO BID PRN pain #7 caps 04/24/22 celecoxib 200 mg capsule (Celebrex) 200 mg PO BID 04/30/22 fexofenadine 180 mg tablet 180 mg PO DAILY 04/30/22 tamsulosin 0.4 mg capsule (Flomax) 0.4 mg PO DAILY 04/30/22 tumeric 100 mg-augustina 150 mg-olive 1 cap PO DAILY 04/30/22 50 mg-oreg 150 mg-caprylate capsule fluconazole 150 mg tablet 150 mg PO Q3D 2 doses #2 tabs 05/04/22 (Diflucan) nitrofurantoin 100 mg PO Q12H #10 caps 05/21/22 monohydrate/macrocrystals 100 mg capsule sulfamethoxazole 800 1 tab PO BID #10 tabs 05/25/22 mg-trimethoprim 160 mg tablet (Bactrim DS) Current Visit Medications: Current Medications Generic Name Dose Route Start Last Admin Trade Name Freq PRN Reason Stop Dose Admin Ringer's Solution 1,000 mls @ 80 mls/hr 05/31/22 06:00 05/31/22 06:55 IV 06/29/22 23:59 80 mls/hr INFUSION JEFRY Administration Cefazolin Sodium/Dextrose 2 gm in 50 mls @ 100 mls/hr 05/31/22 06:00 Ancef Duplex IVPB 05/31/22 16:00 PREOP JEFRY IV Miscellaneous Supplies 1 each 05/31/22 06:00 Iv Access IV 06/29/22 23:59 DIRECTED JEFRY Sodium Chloride 0 ml 05/31/22 06:00 Normal Saline Flush 10 Ml Syr IV 06/29/22 23:59 PRN PRN Sodium Chloride 0 ml 05/31/22 06:00 Normal Saline 10 Ml Vial IJ 06/29/22 23:59 DIRECTED PRN Sterile Water 0 ml 05/31/22 06:00 Water,Injection,Sterile 10 Ml Vial IJ 06/29/22 23:59 DIRECTED PRN PFSH Active Problems Active Problems: Problem Status Onset Code Abnormal mammogram, unspecified R92.8 Allergic rhinitis J30.9 Depressive disorder F32.9 Essential hypertension 02/25/13 I10 Hearing loss H91.90 Osteoarthritis, hand Sensorineural hearing loss, bilateral 01/20/15 H90.3 Tinnitus of both ears 01/20/15 H93.13 Status post cholecystectomy Z90.49 Status post breast biopsy Z98.890 Hyperlipidemia E78.5 History of tobacco use Z87.891 History of eye surgery Z98.890 H/O dysmenorrhea Z87.42 Clostridium difficile infection 02/01/08 A49.8 Chronic cholecystitis K81.1 Cholecystitis 02/25/13 K81.9 Abnormal weight loss 06/02/12 R63.4 Bilateral buttock pain M79.18 Blood pressure check Z01.30 Exertional shortness of breath R06.02 Chronic hypokalemia E87.6 Ischial bursitis M70.70 Eye problem H57.9 Arthritis M19.90 Medical History Medical History Essential hypertension Kidney stones Tobacco use Surgical History Surgical History Biopsy of breast (~2002) [facility]-neg. Cholecystectomy (02/11/13) History of cystoscopy STRABISMUS X 2 Tobacco Smoking/Tobacco Use Status: Former Tobacco Use Passive smoking exposure: Yes Second hand exposure: Yes Alcohol Alcohol Intake: never Substance Use Substance use: Never Substance use type: does not use Vital Signs and Lab Results Vital Signs Most Recent Vital Signs in EMR: Most Recent Vital Signs Temp Pulse Resp BP Pulse Ox 36 C L 70 16 110/57 L 99 05/31/22 06:34 05/31/22 06:34 05/31/22 06:34 05/31/22 06:34 05/31/22 06:34 Lab Results Blood Type / Crossmatch: No Data to Display Complete Blood Count: No Data to Display Complete Metabolic Panel: No Data to Display Liver Function Panel: No Data to Display Coagulation Panel: No Data to Display Cardiac Panel: No Data to Display Arterial Blood Gas: No Data to Display Venous Blood Gas: No Data to Display Pancreas Panel: No Data to Display Thyroid Panel: No Data to Display Infectious Disease: No Data to Display Blood Cultures: No Data to Display Toxicology Panel: No Data to Display Imaging and Studies Imaging and Studies Study information below may be from another EMR and interpreted by another provider. Please see original notes in EMR for more complete details. Stress Test Summary: 05/31/2017: Impressions: Normal study after maximal exercise. Summary: 1. Stress ECG conclusions: Fierro treadmill score: 7. This score predicts a low risk of cardiac events. Pulmonary Function Summary: 01/19/22: Pulmonary Function Test Result Requesting Provider Donna Holloway Indications: Dyspnea on Exertion Interpretation Spirometry: There is no airflow limitation. There is no significant bronchodilator response. Lung Volumes: Normal lung volumes. Diffusion Capacity: Normal diffusion. Airway Pressure: Normal airways resistance Impression Normal pulmonary function testing Clinical Correlation therefore is recommended. Anesthesia Assessment and Plan Anesthesia History Personal History: No History of Anesthesia Complications Family History: No Family History of Anesthesia Complications Exercise Tolerance Exercise Tolerance: Metabolic Equivalents>4 Pertinent Negatives Pertinent Negatives: No Symptoms of GERD, No Major Cardiovascular Symptoms or Complaints and No Major Pulmonary Symptoms or Complaints Cardiac & Pulmonary Exam Cardiac Exam: Normal S1/S2 Heart Sounds Pulmonary Exam: Clear Bilateral Breath Sounds Implantable Cardiac Device Does patient have a Pacemaker or an ICD?: No Airway Exam Known Difficult Airway: No Mallampati Class: 2 Mouth Opening: Normal (> 3cm) Thyromental Distance: Greater than 3 cm Neck Range of Motion: Full ROM Neck Circumference: Normal Teeth Condition: Normal Dentition ASA Classification ASA Score: ASA 2 Emergency Case?: No NPO Status NPO Status: NPO Clears >2 hours, Solids >8 hours Anesthesia Plan Resuscitation Status: Full Code Anesthesia Technique: General Anesthesia Airway Planned: Natural Airway Monitors Used: Standard Monitors
[2022-05-31 07:04] VITALS: BMI 22.6
[2022-05-31] MEDS: ceFAZolin 2 GM/50 ML BAG IVPB (07:34)
[2022-05-31] MEDS: Lidocaine 2% Jelly 6 ML SYR (07:56)
[2022-05-31] MEDS: Omnipaque 300 MG/ML 50 ML BTL (07:56)
--- NOTE | 2022-05-31 08:02 | DI.RAD_ITS ---
Exam(s) XR RETROGRADE IN OR EXAM: XR RETROGRADE IN OR CLINICAL HISTORY: Right ureteral stone. TECHNIQUE: 2D digital imaging was performed. COMPARISON: No exams were available for comparison FINDINGS: Fluoroscopy provided during urologic procedure. See procedure report for details. Radiation exposure index: Ka,r= 0.7183mGy IMPRESSION: DATA REPOSITORY: RADIATION DOSE DELIVERED:
--- NOTE | 2022-05-31 08:07 | W.PM.DSUDISC ---
Date of service: 05/31/22 Time of Service: 08:07 Discharge Plan Disposition Patient Disposition: Home Condition: Good Discharge Details Reason For Visit: ureteroscopy Attending Provider: Saroj Reyna Primary Care Provider: MADHU ANDERS Home Meds and New Rx's Prescriptions: No Action cholecalciferol (vitamin D3) 25 mcg (1,000 unit) capsule 1,000 unit PO DAILY tamsulosin [Flomax] 0.4 mg capsule 0.4 mg PO DAILY celecoxib [Celebrex] 200 mg capsule 200 mg PO BID kewnmxh-jttt-xdtnu-oreg-capryl 100 mg-150 mg- 50 mg-150 mg capsule 1 cap PO DAILY fexofenadine 180 mg tablet 180 mg PO DAILY acetaminophen 325 MG tablet 325 mg PO PRN Qty: 2 ibuprofen 200 MG capsule 200 mg PO PRN Qty: 2 vitamin B complex [B-Complex] 1 EACH tablet 1 ea PO DAILY fluticasone propionate 16 GM spray,suspension 2 spray NS DAILY Label Comments: 06/05/17 on hold. si potassium gluconate 595 mg (99 mg) tablet 99 mg PO DAILY Qty: 120 albuterol sulfate [ProAir HFA] 90 mcg/actuation HFA aerosol inhaler See Rx Instructions inhalation Q6H PRN Rx Instructions: 1-2 puffs inhaled every 6 hours PRN; fluconazole [Diflucan] 150 mg tablet 150 mg PO Q3D Qty: 2 0RF nitrofurantoin monohyd/m-cryst 100 mg capsule 100 mg PO Q12H Qty: 10 0RF Rx Instructions: must administer with a meal/food sulfamethoxazole-trimethoprim [Bactrim DS] 800-160 mg tablet 1 tab PO BID Qty: 10 0RF oxycodone 5 mg capsule 5 mg PO BID PRN (Reason: pain) Qty: 7 0RF Discharge Instructions Additional Instructions: followup @ 6 weeks with renal us no need to strain urine Activity:: Activity as Tolerated Shower/Bathe:: 24 hours Diet:: As Tolerated Discharge Orders Discharge Orders: Discharge Order (Routine); Ordered 05/31/22 Ordered By: Saroj Reyna DS: Diagnosis Discharge Diagnosis (1) Kidney stones:
--- NOTE | 2022-05-31 08:12 | W.PM.DSUDISC ---
Discharge Plan Disposition Patient Disposition: Home Condition: Good Discharge Details Reason For Visit: ureteroscopy Attending Provider: Saroj Reyna Primary Care Provider: MADHU ANDERS Home Meds and New Rx's Prescriptions: No Action cholecalciferol (vitamin D3) 25 mcg (1,000 unit) capsule 1,000 unit PO DAILY tamsulosin [Flomax] 0.4 mg capsule 0.4 mg PO DAILY celecoxib [Celebrex] 200 mg capsule 200 mg PO BID zzkrkme-uquu-aqjok-oreg-capryl 100 mg-150 mg- 50 mg-150 mg capsule 1 cap PO DAILY fexofenadine 180 mg tablet 180 mg PO DAILY acetaminophen 325 MG tablet 325 mg PO PRN Qty: 2 ibuprofen 200 MG capsule 200 mg PO PRN Qty: 2 vitamin B complex [B-Complex] 1 EACH tablet 1 ea PO DAILY fluticasone propionate 16 GM spray,suspension 2 spray NS DAILY Label Comments: 06/05/17 on hold. si potassium gluconate 595 mg (99 mg) tablet 99 mg PO DAILY Qty: 120 albuterol sulfate [ProAir HFA] 90 mcg/actuation HFA aerosol inhaler See Rx Instructions inhalation Q6H PRN Rx Instructions: 1-2 puffs inhaled every 6 hours PRN; fluconazole [Diflucan] 150 mg tablet 150 mg PO Q3D Qty: 2 0RF nitrofurantoin monohyd/m-cryst 100 mg capsule 100 mg PO Q12H Qty: 10 0RF Rx Instructions: must administer with a meal/food sulfamethoxazole-trimethoprim [Bactrim DS] 800-160 mg tablet 1 tab PO BID Qty: 10 0RF oxycodone 5 mg capsule 5 mg PO BID PRN (Reason: pain) Qty: 7 0RF Discharge Instructions Additional Instructions: followup @ 6 weeks with renal us no need to strain urine Activity:: Activity as Tolerated Shower/Bathe:: 24 hours Diet:: As Tolerated Discharge Orders Discharge Orders: Discharge Order (Routine); Ordered 05/31/22 Ordered By: Saroj Reyna DS: Diagnosis Discharge Diagnosis (1) Kidney stones:
--- NOTE | 2022-05-31 08:14 | ROE_ITS ---
Date of service: 05/31/22 Time of Service: 08:14 Operative Note Operative Note DATE OF PROCEDURE: 05/31/22 PRE-OP DIAGNOSIS: Right kidney stone POST-OP DIAGNOSIS: same PROCEDURE: cystoscopy, remove right ureteral stent, right retrograde pyelogram, right flexible ureteroscopy with extraction of stone fragment SURGEON: Saroj Reyna ANESTHESIA TYPE: General:No Airway Refer to Anesthesia Record ESTIMATED BLOOD LOSS: 0 PATHOLOGY: none sent COMPLICATIONS: None Patient was transported to: same day Patient's condition: stable Implants: none Indications: This is a 66-year-old woman who previously presented with a proximal right ureteral stone. She was treated with ureteroscopy, holmium laser lithotripsy, extraction of multiple stone fragments and placement of a ureteral stent. She presents now for repeat ureteroscopy and extraction of any residual stone fragments. Findings: residual fragment right lower pole Procedure Description: The patient was brought to the operating room on 05/31/2022. After successful induction of general anesthesia without intubation, she was placed in the dorsal lithotomy position. Her genitalia was prepped and draped. She was given a dose of preoperative IV antibiotics. A 22 [place] rigid cystoscope was passed through the urethra into the bladder. The bladder was inspected with a 30 degree lens. The stent could be seen protruding from the right ureteral orifice. The stent was grasped with alligator forceps and brought to the level of the urethral meatus. A Glidewire was then passed through the lumen of the stent and the stent was removed leaving the wire in place. A dual-lumen catheter was advanced over the wire and a retrograde pyelogram was obtained by injecting Omnipaque through the second lumen of the dual-lumen catheter. This allowed us to outline the calyces and renal pelvis for mapping purposes. A second Glidewire was then passed and the dual-lumen catheter was removed. We chose one of the wires as a working wire and the other as a safety wire. We passed a ureteral access sheath over the working wire and advanced the sheath to the level of the proximal ureter. A flexible ureteroscope was passed through the ureteral access sheath and the renal pelvis and calyces were inspected. A 4 to 5 mm stone fragment was identified in a lower pole calyx. The fragment was grasped in a 0 tip stone basket and removed in its entirety. No additional significant sized stone fragments were identified. We elected not to place a ureteral stent back in the right ureter. As we have previously had a stone analysis, we elected not to send today stone fragment for chemical analysis. The patient tolerated this procedure well there were no complications.
[2022-05-31 08:16] VITALS: BP 114/72; PULSE 79; RESP 20; TEMP 36; O2SAT 95
[2022-05-31 08:42] VITALS: BP 108/58; PULSE 67; RESP 18; TEMP 36; O2SAT 96
[2022-05-31] MEDS: Phenazopyridine 200 MG TAB PO (08:42)
--- NOTE | 2022-05-31 09:19 | W.ANESPOSTOP ---
Postoperative Evaluation Date, Time and Location Date Performed: 05/31/22 Time Performed: 09:17 Patient Location: Day [facility] Unit Vital Signs Most Recent Imported Vital Signs: Most Recent Vital Signs Temp Pulse Resp BP Pulse Ox 36 C L 79 20 114/72 95 05/31/22 08:16 05/31/22 08:16 05/31/22 08:16 05/31/22 08:16 05/31/22 08:16 Pain Score Most Recent Pain Score: Most Recent Pain Score Pain Level 0 05/31/22 08:16 Assessment Mental Status: Awake (Alert & Oriented to Patient Baseline) Airway and Respiratory Function: Patent airway with normal (patient baseline) respiratory exam Cardiovascular Function: Hemodynamically Stable Hydration Status: Adequately Hydrated Nausea & Vomiting: No Nausea or Vomiting Pain: Pt. Denies Any Pain Peripheral Nerve Block: Patient did not receive a nerve block Teaching Patient Teaching: Other (Discussed with patient period of hiccups at the end of procedure. Since being in [facility], patient has been able to cough and deep breath. Clear bilateral breath sounds. Patient educated about potential for aspiration and to seek medical care if any difficulty breathing or if she develops a fever. )
[2022-05-31] MEDS: Acetaminophen 500 MG TAB 1000 MG PO (09:33)
== END 2022-05-31 09:50 | disposition home or self-care (01) ==
PROVIDERS: PCP Nurse Practitioner Family; Visit Provider Urology
PROC: (CPT 52352; principal; 2022-05-31 07:30)
DX: N20.0 Calculus of kidney (principal); I10 Essential (primary) hypertension; E78.5 Hyperlipidemia, unspecified
CPT/HCPCS: 52352; 74420; J0690; J1100; J1885; J2405; J2704; Q9967

== ENCOUNTER 2022-07-18 00:07 | Outpatient (CLI) | payer MEDICARE, SELFPAY ==
--- NOTE | 2022-07-18 07:26 | DI.US_ITS ---
Exam(s) US RENAL EXAM: US RENAL CLINICAL HISTORY: ? hydronephrosis after ureteroscopy,CALCULUS OF PROXIMAL RT URETER,N20.1. TECHNIQUE: [place] Valle scale, color and spectral Doppler were used. COMPARISON: CT CT RENAL COLIC WO from 04/24/2022 XA XR RETROGRADE IN OR from 04/30/2022 US US RENAL from 05/16/2022 FINDINGS: Renal size in cm: Right: Left: Echogenicity: Normal Hydronephrosis: No Cyst or mass: No Nephrolithiasis: 6 millimeter shadowing echogenic focus inferior pole left kidney, artifact versus st one. No stones were demonstrated on prior exams in this location. Prior exam percent right lower po le stone. Bladder:Not well distended, difficult to evaluate Prevoid vol: 20 cc Postvoid vol:4 cc IMPRESSION: No evidence of hydronephrosis. Question stone versus artifact lower pole left kidney DATA REPOSITORY:
== END 2022-07-18 00:27 ==
LOC: DI 00:07
PROVIDERS: PCP Nurse Practitioner Family; Visit Provider Urology
DX: N20.1 Calculus of ureter (principal)
CPT/HCPCS: 76770

== ENCOUNTER → 2022-08-15 07:45 | Outpatient (BNVA) | payer MEDICARE, SELFPAY | PROVIDERS: PCP Nurse Practitioner Family; Referring Provider Nurse Practitioner Family; Visit Provider Nurse Practitioner Gerontology | DX: N20.0 Calculus of kidney (principal) | CPT/HCPCS: 99442 ==

== ENCOUNTER 2022-10-19 01:01 | Outpatient (CLI) | payer MEDICARE, SELFPAY ==
--- NOTE | 2022-10-19 14:00 | DI.DEXA_ITS ---
Exam(s) XR DEXA BONE DENSITY W/WO ANITA EXAM: XR DEXA BONE DENSITY W/WO ANITA CLINICAL HISTORY: AGE-RELATED NATURAL ASYMPTOMATIC MENOPAUSAL STATUS, Z78.0; H/O TOBACCO USE TECHNIQUE: COMPARISON: No exams were available for comparison FINDINGS: Lateral Spine Image: Unremarkable. No compression deformities identified. Left hip: Total T-Score: -2.2 Total Z-Score: -0.9 T- and Z-scores: The findings are consistent with osteopenia. There is osteoporosis in the femoral n jorge with a T-score of -2.9. Lumbar Spine: Total T-Score: -3.1 Total Z-Score: -1.1 T- and Z-scores: Findings are consistent with osteoporosis. IMPRESSION: Findings of osteoporosis in the femoral neck and lumbar spine.
== END 2022-10-19 01:21 ==
LOC: DI 01:01
PROVIDERS: PCP Nurse Practitioner Family; Visit Provider Nurse Practitioner Family
DX: Z78.0 Asymptomatic menopausal state (principal); M85.89 Other specified disorders of bone density and structure, multiple sites; Z13.820 Encounter for screening for osteoporosis
CPT/HCPCS: 77080

== ENCOUNTER → 2023-02-13 01:01 | Outpatient (CLI) | payer MEDICARE, SELFPAY ==
--- NOTE | 2023-02-13 08:14 | DI.US_ITS ---
Exam(s) US RENAL EXAM: US RENAL CLINICAL HISTORY: monitoring renal calculi,KIDNEY STONES,N20.0 TECHNIQUE: Ultrasound of both kidneys performed using standard protocol. COMPARISON: US US RENAL from 07/18/2022 FINDINGS: RIGHT KIDNEY: Measures 11.6 cm in length. There is a small exophytic cyst off the superior pole region of right kid nela measuring 10 x 9 mm. There is another benign cyst the inferior pole region of the right kidney m easuring 9 x 8 mm. No solid masses in the right kidney. No calculi. No hydronephrosis. Cortical t hickness is normal. Cortical medullary differentiation normal. No intrarenal calculi nor hydronephrosis. LEFT KIDNEY: Measures 11.3 cm in length. No cysts evident. Normal cortical thickness and corticomedullary differe ntiaion. No solids masses. Left kidney contains 2 small hyperechoic foci measuring 2 and 3 mm which are probably nonobstructive intrarenal calculi. URINARY BLADDER: Prevoid volume is 60 cc Postvoid volume is done cc No obvious mass in the bladder nor hyperechoic calculi in the bladder. Ureterovesical jets: Both not visualized IMPRESSION: 1. Two small nonobstructive calculi in left kidney measuring 2 and 3 mm. 2. Two small benign cysts in the right kidney. No solid renal masses. No hydronephrosis. DATA REPOSITORY:
== END ==
PROVIDERS: PCP Nurse Practitioner Family; Visit Provider Nurse Practitioner Gerontology
DX: N20.0 Calculus of kidney (principal)
CPT/HCPCS: 76770

== ENCOUNTER 2023-04-09 16:07 | Outpatient (REF) | payer MEDICARE, SELFPAY ==
[2023-04-09 17:12] LABS: Bilirubin Negative (Negative); Blood Negative (Negative); Clarity Clear (Clear); Glucose Negative (Negative); Ketones Negative (Negative); Leukocyte Esterase Negative (Negative); Nitrite Negative (Negative); Urobilinogen 0.2 mg/dL (Up to 0.2)
== END 2023-04-09 16:08 | disposition home or self-care (01) ==
LOC: LBN 16:07
PROVIDERS: PCP Nurse Practitioner Family; Visit Provider Urology
DX: R10.9 Unspecified abdominal pain (principal); R82.89 Other abnormal findings on cytological and histological examination of urine
CPT/HCPCS: 81003; 87086

== ENCOUNTER 2023-08-01 14:51 | Outpatient (REF) | payer MEDICARE, SELFPAY ==
[2023-08-01 18:59] LABS: HCT 42.5 % (36.0-46.0); MCH 31.3 pg (27.0-33.0); MCHC 32.9 % (32.0-36.0); MCV 95 fL (80-95); MPV 10.2 fL (8.0-11.0); Platelet Count 240 10^3/uL (130-400); RBC 4.48 10^6/uL (3.93-5.22); RDW 12.2 % (11.7-14.6); RDW-SD 42.5 fL; WBC 5.65 10^3/uL (4.4-10.8)
[2023-08-01 19:37] LABS: ALT 55 U/L (14-59); AST 30 U/L (15-37); Albumin 4.2 g/dL (3.4-5.0); Alkaline Phosphatase 46 U/L (46-116); BUN 14 mg/dL (7-18); Bilirubin, Total 0.8 mg/dL (0.2-1.0); CREATININE 0.7 mg/dL (0.55-1.02); Calculated LDL 146 mg/dL (<100); Chloride 105 mmol/L (98-107); Cholesterol 231 mg/dL (<200); Estimated GFR 94.15 (mL/min/1.73m2); Glucose 90 mg/dL (74-106); HDL Cholesterol 59 mg/dL (40-60); Potassium 4.3 mmol/L (3.5-5.1); Sodium 143 mmol/L (136-145); Total Protein 7.2 g/dL (6.4-8.2); Triglyceride 131 mg/dL (<150); Vitamin B12 483 pg/mL (193-986)
== END 2023-08-01 14:52 | disposition home or self-care (01) ==
LOC: NCHCN 14:51
PROVIDERS: PCP Nurse Practitioner Family; Visit Provider Nurse Practitioner Family
DX: R41.3 Other amnesia (principal); Z13.220 Encounter for screening for lipoid disorders
CPT/HCPCS: 80053; 80061; 85027; 82607

== ENCOUNTER → 2023-11-27 15:01 | Outpatient (BNVA) | payer MEDICARE, SELFPAY | PROVIDERS: PCP Nurse Practitioner Family; Referring Provider Nurse Practitioner Family; Visit Provider Nurse Practitioner Adult Health | DX: G31.84 Mild cognitive impairment of uncertain or unknown etiology (principal) | CPT/HCPCS: 99215 ==

== ENCOUNTER 2023-12-04 09:54 | Outpatient (CLI) | payer MEDICARE, SELFPAY ==
[2023-12-04 10:34] LABS: TSH (W/Ref FT4) 0.88 uIU/mL (0.36-3.74)
== END 2023-12-04 09:55 | disposition home or self-care (01) ==
LOC: LBO 09:54
PROVIDERS: PCP Nurse Practitioner Family; Visit Provider Nurse Practitioner Adult Health
DX: G31.84 Mild cognitive impairment of uncertain or unknown etiology (principal)
CPT/HCPCS: 36415; 84443

== ENCOUNTER → 2024-01-02 08:02 | Outpatient (BNVA) | payer MEDICARE, SELFPAY | PROVIDERS: PCP Nurse Practitioner Family; Referring Provider Nurse Practitioner Family; Visit Provider Nurse Practitioner Adult Health | DX: G31.84 Mild cognitive impairment of uncertain or unknown etiology (principal) | CPT/HCPCS: 99213 ==

== ENCOUNTER 2024-07-24 00:44 | Outpatient (CLI) | payer MEDICARE, SELFPAY ==
[2024-07-24 10:30] LABS: Abs Immature Grans 0.01 10^3/uL (0.0-0.06); Absolute Basophil Count 0.05 10^3/uL (0.0-0.2); Absolute Eosinophil Count 0.05 10^3/uL (0.0-0.7); Absolute Lymphocyte Count 1.49 10^3/uL (1.2-3.4); Absolute Monocyte Count 0.44 10^3/uL (0.1-0.8); Absolute Neutrophil Count 2.64 10^3/uL (1.2-6.7); Basophils % 1.1 %; Eosinophils % 1.1 %; HGB 14.5 g/dL (11.2-15.7); Immature Grans % 0.2 %; Lymphocytes % 31.8 %; MCH 31.9 pg (27.0-33.0); MCV 97 fL (80-95); MPV 9.7 fL (8.0-11.0); Monocytes % 9.4 %; Neutrophils % 56.4 %; Platelet Count 224 10^3/uL (130-400); RBC 4.55 10^6/uL (3.93-5.22); RDW 12.1 % (11.7-14.6); RDW-SD 43.2 fL; WBC 4.68 10^3/uL (4.4-10.8)
[2024-07-24 11:26] LABS: ALT 46 U/L (14-59); AST 26 U/L (15-37); Albumin 4.1 g/dL (3.4-5.0); Alkaline Phosphatase 44 U/L (46-116); Anion Gap 6.7 mmol/L (3-11); BUN 13 mg/dL (7-18); Bilirubin, Total 0.84 mg/dL (0.2-1.0); CO2 29.3 mmol/L (21.0-32.0); CREATININE 0.8 mg/dL (0.55-1.02); Calcium 9.5 mg/dL (8.5-10.1); Chloride 106 mmol/L (98-107); Estimated GFR 79.71 (mL/min/1.73m2); Glucose 87 mg/dL (74-106); Potassium 3.9 mmol/L (3.5-5.1); Sodium 142 mmol/L (136-145); Total Protein 7.1 g/dL (6.4-8.2)
== END 2024-07-24 00:45 | disposition home or self-care (01) ==
PROVIDERS: PCP Nurse Practitioner Family; Visit Provider Nurse Practitioner Family
DX: R42 Dizziness and giddiness (principal)
CPT/HCPCS: 36415; 80053; 83735; 85025

== ENCOUNTER → 2025-01-07 08:07 | Outpatient (BNVA) | payer MEDICARE, SELFPAY | PROVIDERS: PCP Nurse Practitioner Family; Referring Provider Nurse Practitioner Family; Visit Provider Nurse Practitioner Adult Health | DX: G31.84 Mild cognitive impairment of uncertain or unknown etiology (principal) | CPT/HCPCS: 99215 ==